=== PATIENT | female | born 1940 | race Caucasian/White ===

== ENCOUNTER 2016-10-27 17:34 | Emergency (ER) | payer OTHER ==
[~2016-10-27] VITALS: Ht 160 cm; Wt 103.0 kg
[~2016-10-27 17:34] MED LIST: ALBU1AER9 INH; ANT25 PO; BUPRTAB51 PO; METO50TA7 PO; MULT-513 PO; PRAV20TA PO; PRLSR20 PO; SYN88 PO
[2016-10-27 17:44] VITALS: TEMP 37.3; Ht 160 cm; Wt 103.0 kg
[2016-10-27] MEDS ORDERED: ASPIRIN 81 MG CHEW PO STA (18:01)
[2016-10-27] MEDS ORDERED: ALUMINUM/MAGNESIUM SUSP 30 ML UDC PO STA (18:01)
--- NOTE | 2016-10-27 18:01 | EMERGENCY ROOM VISIT NOTE ---
History Report prepared by Sandra: Cammy Ng Under the Supervision of: Dr. Kwame Kelsey D.O. First contact with patient: 17:47 Chief Complaint: CHEST PAIN Stated Complaint: CHEST PAIN History of Present Illness The patient is a 76 year old female who presents to the Emergency Room with complaints of intermittent chest pain starting earlier today [employer]. The patient states that some nights she has night sweats which are normal for her but states that today she awoke with diaphoresis, and cramping throughout her chest pain and states the pain has been persistent throughout the day and when the pain begins it lasts for about 15 minutes. The patient states that exertion increases her pain but nothing has made it better. The patient states that she has hypertension and high cholesterol. She states she also has a cardiac ablation in the past for ventricular tachycardia. The patient states that she has no history of NE, stress tests or heart catheterizations. The patient denies any history of diabetes. The patient denies any SOB, or pain or swelling in her legs. Source of History: patient Onset: earlier today [employer] Position: chest Quality: cramping Timing: intermittent Modifying Factors (Worsening): exertion Associated Symptoms: + diaphoresis, No SOB Note: Patient denies any leg pain or swelling. Review of Systems See HPI for pertinent positives & negatives. A total of 10 systems reviewed and were otherwise negative. Past Medical & Surgical Medical Problems: (1) High cholesterol (2) Hypertension Surgical Problems: (1) History of cardiac radiofrequency ablation Family History No family history secondary to age Social History Smoking Status: Never Smoker Marital Status: Housing Status: lives with family Occupation Status: retired Current/Historical Medications Scheduled Aspirin (Aspirin Ec), 81 MG PO DAILY Atorvastatin (Lipitor), 40 MG PO DAILY Bupropion HCl (Bupropion HCl Xl), 300 MG PEG DAILY Clonazepam (Klonopin), 0.5 MG PO HS Fluoxetine (Prozac), 20 MG PO DAILY Fluticasone Prop/Salmeterol (Advair Diskus 250/50 60 Dose), 1 PUFF INH BID Levothyroxine Sodium (Synthroid), 88 MCG PO DAILY Metoprolol Tartrate (Lopressor) (Lopressor), 50 MG PO BID Naproxen (Naproxen), 1 TAB PO BID Omeprazole (Prilosec), 20 MG PO DAILY Scheduled PRN [Proair], 2 PUFFS INH QID PRN for COUGH,WHEEZE,CONGESTION Allergies Coded Allergies: Hydrocodone (Verified Allergy, Intermediate, GI UPSET, 10/27/16) Acetaminophen (Verified Allergy, Unknown, GI SYMPTOMS, 10/27/16) Codeine (Verified Allergy, Unknown, TYLENOL WITH CODEINE, 09/27/09) Morphine and Related (Verified Allergy, Unknown, UNKNOWN, 10/27/16) Propoxyphene (Verified Allergy, Unknown, GI SYMPTOMS, 10/27/16) Tramadol (Verified Allergy, Unknown, 09/27/09) Physical Exam Vital Signs Date Time Temp Pulse Resp B/P Pulse Ox O2 Delivery O2 Flow Rate FiO2 10/27/16 19:59 79 18 169/107 96 Room Air 10/27/16 19:16 74 10/27/16 18:54 79 20 198/99 96 Room Air 10/27/16 17:44 37.3 81 18 178/97 97 Physical Exam GENERAL: Patient is awake, alert, and in no acute distress. Patient is resting comfortably and showing no signs of anxiety EYES: The conjunctivae are clear. The pupils are round and reactive. EARS, NOSE, MOUTH AND THROAT: The nose is without any evidence of any deformity. Mucous membranes are moist tongue is midline NECK: The neck is nontender and supple. RESPIRATORY: Normal respiratory effort is noted there is no evidence of wheezing rhonchi or rales CARDIOVASCULAR: Regular rate and rhythm noted there no murmurs rubs or gallops normal S1 normal S2 GASTROINTESTINAL: The abdomen is soft. Bowel sounds are present in all quadrants. Abdomen is nontender MUSCULOSKELETAL/EXTREMITIES: There is no evidence of gross deformity full range of motion is noted in the hips and shoulders SKIN: There is no obvious evidence of any rash. There are no petechiae, pallor or cyanosis noted. NEUROLOGIC: Patient is awake alert and oriented x3 strength is symmetric patellar reflexes are 2+ bilaterally Medical Decision & Procedures ER Provider Diagnostic Interpretation: X-ray results as stated below per interpretation by me and the radiologist. CHEST ONE VIEW PORTABLE CLINICAL HISTORY: ABDOMINAL PAIN/GI pain COMPARISON STUDY: No previous studies for comparison. FINDINGS: The bones soft tissues and hemidiaphragms are normal. The cardiomediastinal silhouette is normal. The lungs are clear. The pulmonary vasculature is normal. IMPRESSION: Negative chest. Electronically signed by: Juan J Valderrama M.D. 10/27/2016 6:17 PM Laboratory Results 10/27/16 18:30 Red Blood Count 5.26, Mean Corpuscular Volume 88.2, Mean Corpuscular Hemoglobin 30.4, Mean Corpuscular Hemoglobin Concent 34.5, Mean Platelet Volume 10.1, Neutrophils (%) (Auto) 82.8, Lymphocytes (%) (Auto) 8.3, Monocytes (%) (Auto) 8.1, Eosinophils (%) (Auto) 0.2, Basophils (%) (Auto) 0.4, Neutrophils # (Auto) 4.40, Lymphocytes # (Auto) 0.44, Monocytes # (Auto) 0.43, Eosinophils # (Auto) 0.01, Basophils # (Auto) 0.02 10/27/16 18:30 Test 10/27/16 18:30 White Blood Count 5.31 K/uL (4.8-10.8) Red Blood Count 5.26 M/uL (4.2-5.4) Hemoglobin 16.0 g/dL (12.0-16.0) Hematocrit 46.4 % (37-47) Mean Corpuscular Volume 88.2 fL (80-100) Mean Corpuscular Hemoglobin 30.4 pg (25-34) Mean Corpuscular Hemoglobin Concent 34.5 g/dl (32-36) Platelet Count 197 K/uL (130-400) Mean Platelet Volume 10.1 fL (7.4-10.4) Neutrophils (%) (Auto) 82.8 % Lymphocytes (%) (Auto) 8.3 % Monocytes (%) (Auto) 8.1 % Eosinophils (%) (Auto) 0.2 % Basophils (%) (Auto) 0.4 % Neutrophils # (Auto) 4.40 K/uL (1.4-6.5) Lymphocytes # (Auto) 0.44 K/uL (1.2-3.4) Monocytes # (Auto) 0.43 K/uL (0.11-0.59) Eosinophils # (Auto) 0.01 K/uL (0-0.5) Basophils # (Auto) 0.02 K/uL (0-0.2) RDW Standard Deviation 43.3 fL (36.4-46.3) RDW Coefficient of Variation 13.4 % (11.5-14.5) Immature Granulocyte % (Auto) 0.2 % Immature Granulocyte # (Auto) 0.01 K/uL (0.00-0.02) Prothrombin Time 11.5 SECONDS (9.0-12.0) Prothromb Time International Ratio 1.1 (0.9-1.1) Activated Partial Thromboplast Time 27.3 SECONDS (21.0-31.0) Partial Thromboplastin Ratio 1.1 Anion Gap 14.0 mmol/L (3-11) Est Creatinine Clear Calc Drug Dose 64.3 ml/min Estimated GFR () 75.0 Estimated GFR (Non- 64.7 BUN/Creatinine Ratio 14.4 (10-20) Calcium Level 9.6 mg/dl (8.5-10.1) Total Bilirubin 0.5 mg/dl (0.2-1) Direct Bilirubin < 0.1 mg/dl (0-0.2) Aspartate Amino Transf (AST/SGOT) 23 U/L (15-37) Alanine Aminotransferase (ALT/SGPT) 28 U/L (12-78) Alkaline Phosphatase 120 U/L (45-117) Total Creatine Kinase 32 U/L (26-192) Creatine Kinase MB < 0.5 ng/ml (0.5-3.6) Creatine Kinase MB Ratio (0-3.0) Troponin I < 0.015 ng/ml (0-0.045) Total Protein 7.2 gm/dl (6.4-8.2) Albumin 3.6 gm/dl (3.4-5.0) Lipase 86 U/L (73-393) Laboratory results per my review. Medications Administered Medications (Trade) Dose Ordered Sig/Balaji Route Start Time Stop Time Status Last Admin Dose Admin Aspirin (Aspirin Chew) 324 mg NOW STAT PO 10/27/16 18:01 10/27/16 18:03 DC 10/27/16 18:53 324 MG Al Hydroxide/Mg Hydroxide (Maalox Susp) 30 ml NOW STAT PO 10/27/16 18:01 10/27/16 18:03 DC 10/27/16 18:53 30 ML ECG Indication: chest pain Rate (beats per minute): 79 Rhythm: normal sinus Findings: RBBB, other (No PVCs) Change: no significant change (05/25/2013) ED Course 1752: The patient was evaluated in room C3. A complete history and physical examination were performed. 1800: Ordered Maalox Susp 30 ml PO, Aspirin 324 mg PO. 1999: Upon reevaluation, the patient is C3. I discussed the results and treatment plan with her. She verbalized agreement of the treatment plan. The patient was discharged home. Medical Decision Prior records/ancillary studies reviewed. Triage Nursing notes reviewed. The patient's history was concerning for chest pain. Differential diagnosis: Etiologies such as cardiac ischemia, aortic dissection, pulmonary embolism, pneumonia, pneumothorax, musculoskeletal, infections, pericarditis, myocarditis , esophageal rupture, gastrointestinal, as well as others were entertained. The patient is a 76-year-old female who presented to the emergency department for an evaluation of chest pain. The patient developed chest pain earlier in the day. She states it was not worsened with exertion but she does state that she was helping move some objects around her house recently. The patient had no chest pain upon arrival to the emergency department. Her EKG did not show any acute change from previous and her cardiac biomarkers were negative. I discussed the patient's laboratory and radiographic studies with her. I also discussed the limitations of the emergency department workup for chest pain with her. The patient did not wish to stay in the hospital. I offered to have her evaluated by the hospitalist for possible inpatient management and further testing such as a stress test but the patient wished to be discharged home. She was encouraged to rest and avoid any strenuous activity. She was also encouraged to continue all medications as prescribed. She was also encouraged to follow-up with her primary care physician as soon as possible for further evaluation and possible stress testing to further evaluate the cause of her symptoms. Impression Primary Impression: Substernal chest pain Scribe Attestation The scribe's documentation has been prepared under my direction and personally reviewed by me in its entirety. I confirm that the note above accurately reflects all work, treatment, procedures, and medical decision making performed by me. Departure Information Dispostion Home / Self-Care Referrals No Doctor, Assigned (PCP) Forms HOME CARE DOCUMENTATION FORM, IMPORTANT VISIT INFORMATION Patient Instructions My [facility] Additional Instructions Call your family in the morning to schedule a follow-up appointment. Rest and avoid any strenuous activity. Continue all medications as prescribed. Discuss the possibility with your family doctor that you may require further studies such as a stress test to be evaluate the cause of her pain. Return to the emergency Department immediately if symptoms change worsen or the need arises.
[2016-10-27] MEDS ORDERED: CLON0.5T3 PO (18:18)
[2016-10-27] MEDS ORDERED: FLUO20CA35 PO (18:18)
[2016-10-27] MEDS ORDERED: LEVO88TA PO (18:18)
[2016-10-27] MEDS ORDERED: NAPR375T3 PO (18:18)
[2016-10-27] MEDS ORDERED: PROAIR INH (18:18)
[2016-10-27] MEDS ORDERED: TRMCR130WC TOP (18:18)
[2016-10-27] MEDS ORDERED: WLLXL300 PEG (18:18)
[2016-10-27] MEDS ORDERED: ADVIN25/60 INH (18:18)
[2016-10-27] MEDS ORDERED: ATOR-24 PO (18:18)
[2016-10-27] MEDS ORDERED: METO50TA16 PO (18:18)
--- NOTE | 2016-10-27 18:18 | DIAGNOSTIC IMAGING REPORT ---
CHEST ONE VIEW PORTABLE CLINICAL HISTORY: ABDOMINAL PAIN/GI pain COMPARISON STUDY: No previous studies for comparison. FINDINGS: The bones soft tissues and hemidiaphragms are normal. The cardiomediastinal silhouette is normal. The lungs are clear. The pulmonary vasculature is normal. IMPRESSION: Negative chest. Electronically signed by: Juan J Valderrama M.D. 10/27/2016 6:17 PM Dictated Date/Time: 10/27/2016 6:17 PM
[2016-10-27 18:40] LABS: BASO % 0.4 %; BASO ABS # 0.02 K/uL (0-0.2); COMPLETE YES; EOS % 0.2 %; HEMATOCRIT 46.4 % (37-47); IG% 0.2 %; LYMPH % 8.3 %; LYMPH ABS # 0.44 K/uL (1.2-3.4); MEAN CELL VOLUME 88.2 fL (80-100); MEAN CORPUSCULAR HEMOGLOBIN 30.4 pg (25-34); MEAN CORPUSCULAR HGB CONC 34.5 g/dl (32-36); MEAN PLATELET VOLUME 10.1 fL (7.4-10.4); MONO % 8.1 %; NEUT % 82.8 %; PLATELET COUNT 197 K/uL (130-400); RED BLOOD COUNT 5.26 M/uL (4.2-5.4); WHITE BLOOD COUNT 5.31 K/uL (4.8-10.8)
[2016-10-27] MEDS ORDERED: ASPI81TA28 PO (18:42)
[2016-10-27 18:49] LABS: INR 1.1 (0.9-1.1); PARTIAL THROMBOPLASTIN RATIO 1.1; PROTHROMBIN TIME (PATIENT) 11.5 SECONDS (9.0-12.0)
[2016-10-27 18:56] LABS: ALT/SGPT 28 U/L (12-78); BLOOD UREA NITROGEN 13 mg/dl (7-18); BUN/CREATININE RATIO 14.4 (10-20); CALCIUM 9.6 mg/dl (8.5-10.1); CARBON DIOXIDE 24 mmol/L (21-32); CHLORIDE 104 mmol/L (98-107); CREATININE 0.88 mg/dl (0.60-1.20); GLUCOSE 104 mg/dl (70-99); POTASSIUM 3.7 mmol/L (3.5-5.1); SODIUM 142 mmol/L (136-145)
[2016-10-27 19:01] LABS: ALKALINE PHOSPHATASE 120 U/L (45-117); AST/SGOT 23 U/L (15-37)
[2016-10-27 19:59] VITALS: BP 169/107; PULSE 79; O2SAT 96
== END 2016-10-27 20:30 | disposition home or self-care (01) ==
LOC: C.EDB 17:36 → C.EDC 20:30
DX: R07.2 Precordial pain (principal); I10 Essential (primary) hypertension; E78.00 Pure hypercholesterolemia, unspecified; Z79.82 Long term (current) use of aspirin; Z79.899 Other long term (current) drug therapy

== ENCOUNTER 2023-02-17 14:37 | Observation (INO) ==
--- NOTE | 2023-02-17 15:40 | XRay Report ---
XR chest 1V not portable CLINICAL HISTORY: Chest pain, nonspecific TECHNIQUE: Single frontal radiograph of the chest was obtained. Comparison: Comparison is made to chest radiograph 01/15/2018 FINDINGS: No lines and tubes are seen. Calcified aortic knob is seen. The lungs are clear. No evidence of pleur al effusion or pneumothorax. IMPRESSION: No acute chest disease. ACT 112: Negative or not required by law. Electronically signed by: Mikie Urbina M.D. 02/17/2023 3:39 PM
[2023-02-17 15:46] LABS: Basophils # (auto) 0.06 K/uL (0-0.2); Basophils % (auto) 0.8 %; Eosinophils # (auto) 0.18 K/uL (0-0.50); Eosinophils % (auto) 2.5 %; Hematocrit (blood only) 39.2 % (37.0-47.0); Hemoglobin 13.1 g/dl (12.0-16.0); Immature Granulocytes # (auto) 0.02 K/uL (0.01-0.20); Immature Granulocytes % (auto) 0.3 %; Lymphocytes # (auto) 1.44 K/uL (1.2-3.4); Lymphocytes % (auto) 19.6 %; Mean Corpuscular Hemoglobin 28.2 pg (25.0-34.0); Mean Corpuscular Hgb Conc 33.4 g/dL (32.0-36.0); Mean Corpuscular Volume 84.3 fL (80.0-100.0); Monocytes # (auto) 0.37 K/uL (0.11-0.59); Neutrophils # (auto) 5.26 K/uL (1.40-6.50); Neutrophils % (auto) 71.8 %; Platelet Count 275 K/uL (130-400); RDW Coefficient of Variation 14.5 % (11.5-14.5); RDW Standard Deviation 44.5 fL (36.4-46.3); Red Blood Count 4.65 M/uL (4.20-5.40); White Blood Count 7.33 K/ul (4.8-10.8)
[2023-02-17 16:00] LABS: Albumin Globulin Ratio 1.2 (0.9-2); Albumin Level 3.7 gm/dl (3.4-5.0); Bilirubin,Total 0.4 mg/dl (0.2-1.0); Calcium 9.3 mg/dl (8.6-10.3); Creatinine Clr Calc Pharmacy 57.9 ml/min; Est GFR (African American) 72.9 ml/min; Est GFR (Non-African American) 62.9 ml/min; Globulin 3.1 gm/dl (2.5-4.0); Potassium 3.5 mmol/L (3.5-5.1); Total Protein 6.8 gm/dl (6.0-8.3)
[2023-02-17] MEDS ORDERED: ASPIRIN CHEW 324 MG PO STA (16:03)
[2023-02-17 16:06] LABS: Troponin I High Sensitivity 5.4 pg/ml (0-14)
--- NOTE | 2023-02-17 16:07 | Emergency Department Note ---
Impression & Plan Palpitations, Hypertension ED Provider Note NAME: CHINYERE JENSEN AGE: 82 SEX: F : 1940 ARRIVES VIA: Walk-In INFORMANT: Patient ED PROVIDER(S): Henrry Ng DO CHIEF COMPLAINT: Palpitations HPI: Patient is an 82-year-old female who presents to the ER with a past medical history of SVT with 2 previous ablations. She notes last ablation was about 25 years ago. She has been doing great until over this past year. She notes her palpitations have been worsening. She had about 5 times today. Patient notes that these episodes last for about 10 to 15 minutes. They generally always break when she holds her breath. She did have follow-up with a PCP. She is on the Toprol tartrate 50 mg twice daily. She has not missed any doses. No belly pain nausea vomiting or diarrhea. No dysuria, urgency, or frequency. No other exacerbating or remitting factors. PAST MEDICAL HISTORY:See Below PAST SURGICAL HISTORY:See Below FAMILY HISTORY:See Below SOCIAL HISTORY:See Below HOME MEDICATIONS:See Below ALLERGIES:See Below VITALS:See Below PHYSICAL EXAMINATION: GENERAL: Sitting up in bed, alert, well appearing, well nourished, no distress, non-toxic EYE EXAM: normal conjunctiva. OROPHARYNX: no exudate, no erythema, lips, buccal mucosa, and tongue normal and mucous membranes are moist NECK: supple, no nuchal rigidity, no adenopathy, non-tender LUNGS: Clear to auscultation. Normal chest wall mechanics HEART: no murmurs, S1 normal and S2 normal ABDOMEN: abdomen soft, non-tender, normo-active bowel sounds, no masses, no rebound or guarding. BACK: Back is symmetrical on inspection and there is no deformity, no midline tenderness, no CVA tenderness. SKIN: no rashes and no bruising UPPER EXTREMITIES: upper extremities are grossly normal. LOWER EXTREMITIES: No pitting edema. Calf cervical bilateral NEURO EXAM: Normal sensorium, cranial nerves II-XII grossly intact, normal speech, no gross weakness of arms, no gross weakness of legs. MEDICAL DECISION MAKING: Patient is an 82-year-old female who presents ER for above-stated complaint. IV was established blood work was obtained. External records were reviewed. Labs show no significant leukocytosis or anemia. INR unremarkable. BMP along LFTs bilirubin was unremarkable. Troponin was negative. COVID was negative. Chest x-ray was clean. Patient was given IV fluids and monitor closely in the ER. She was updated bedside. Discussed the case with the hospitalist for further evaluation management and treatment is concerned that this could be A-fib versus SVT. As its happened about 5 times today and favor it is reasonable to monitor her to catch this. Triage Nursing notes reviewed. Limited review of prior medical records performed Vital Signs: reviewed and remarkable for HTN Differential diagnosis: Cardiac ischemia, aortic dissection, pulmonary embolism, pneumothorax, pneumonia, pericarditis, myocarditis, esophageal rupture, GERD, cholecystitis, pancreatitis, musculoskeletal, as well as other pathologies. ER treatment provided: See below Diagnostics interpreted by me include EKG and cardiac monitoring as listed below: -Cardiac Monitoring: An order was placed for continuous cardiac monitoring. The monitor shows a rate of 60 with sinus rhythm. -ECG: Sinus rhythm rate of 62 Normal axis No PVCs Right bundle branch block QTc 442 EKG is not significantly changed from previous with the exception of T wave versions in V1 through V3 -Laboratory studies:Interpreted by me as stated above in MDM and shown below. Imaging studies: Xrays: As interpreted by me: Portable AP upright 1 view of the chest shows no infiltrate CTs show: none Consultation(s): As described in MDM Procedures:none Critical Care: None Past Med/Surg History Medical History (Updated 02/17/23 @ 20:56 by Henrry Ng DO) Depression GERD (gastroesophageal reflux disease) History of supraventricular tachycardia HLD (hyperlipidemia) Hypertension Surgical History (Updated 02/17/23 @ 20:02 by July Neumann PA-C) History of arthroplasty of knee History of cardiac radiofrequency ablation History of cholecystectomy Hx of tonsillectomy Family History (Updated 02/17/23 @ 20:02 by July Neumann PA-C) Other Breast cancer Heart disease Social History (Updated 02/17/23 @ 20:02 by July Neumann PA-C) Smoking Status: Never smoker Second Hand Exposure: No; Do You Dip or Chew Tobacco: No; Tobacco Cessation Education Requested by Patient: No Hx Alcohol Use: No Hx Substance Use: No Preferred Language: Japanese Communication Ability: Effective Wood Type Finisher Required: No Beliefs That Will Affect Care: None Current Living Situation: Alone Other Information That Helps Us Care for You: No Feels Safe at Home: Yes Safety Concerns: Feels Safe At This Time Assistive Devices: Walker Allergies Allergies Allergy/AdvReac Type Severity Reaction Status Date / Time hydrocodone Allergy Intermediate GI UPSET Verified 02/17/23 17:13 acetaminophen Allergy Unknown GI SYMPTOMS Verified 02/17/23 17:13 codeine Allergy Unknown TYLENOL Verified 02/17/23 17:13 WITH CODEINE morphine Allergy Unknown UNKNOWN Verified 02/17/23 17:13 propoxyphene Allergy Unknown GI SYMPTOMS Verified 02/17/23 17:13 tramadol Allergy Unknown Unknown Verified 02/17/23 17:13 Home Meds Home Medications Medication Instructions Recorded Confirmed bupropion HCl 150 mg 24 hr tablet, 150 mg PO QAM 02/17/23 02/17/23 extended release escitalopram oxalate 10 mg tablet 10 mg PO QAM 02/17/23 02/17/23 hydrochlorothiazide 12.5 mg capsule 12.5 mg PO QAM 02/17/23 02/17/23 levothyroxine 88 mcg tablet 88 mcg PO DAILYBB 02/17/23 02/17/23 metoprolol tartrate 50 mg tablet 50 mg PO BID 02/17/23 02/17/23 nystatin 100,000 unit/gram topical 1 applic topical TID 02/17/23 02/17/23 powder omeprazole 20 mg tablet,delayed 20 mg PO DAILY 02/17/23 02/17/23 release rosuvastatin 10 mg tablet 10 mg PO DAILY 02/17/23 02/17/23 Results & Data (ED) Vital Signs Vital Signs - 24 hr 02/17/23 14:41 02/17/23 15:50 02/17/23 15:50 Temperature 36.3 C L Temperature Source Temporal Artery Scan Pulse Rate 72 Pulse Rate [Apical] 65 Pulse Rate from SpO2 Sensor Pulse Rhythm [Apical] Regular Respiratory Rate 18 18 Respiratory Effort / Characteristics Non-Labored Non-Labored Spontaneous Respiratory Depth Normal Normal Respiratory Pattern Regular Regular Blood Pressure 188/84 H Blood Pressure [Right Arm] 165/100 H Blood Pressure Mean 118 Blood Pressure Mean [Right Arm] 121 Blood Pressure Position [Right Arm] Lying Pulse Oximetry 96 96 96 Oxygen Delivery Method Room Air Room Air Room Air Sepsis Recent Fever Within 48 Hours No Sepsis New/Unexplained Change in Mental Status N/A Sepsis Action Taken by Nursing No Action Required 02/17/23 15:55 02/17/23 17:00 02/17/23 15:55 Temperature Temperature Source Pulse Rate 59 L 60 Pulse Rate [Apical] 55 L Pulse Rate from SpO2 Sensor 59 L Pulse Rhythm [Apical] Respiratory Rate 18 13 Respiratory Effort / Characteristics Non-Labored Respiratory Depth Normal Respiratory Pattern Blood Pressure Blood Pressure [Right Arm] 157/79 H Blood Pressure Mean Blood Pressure Mean [Right Arm] 105 Blood Pressure Position [Right Arm] Pulse Oximetry 96 96 Oxygen Delivery Method Room Air Sepsis Recent Fever Within 48 Hours Sepsis New/Unexplained Change in Mental Status Sepsis Action Taken by Nursing 02/17/23 16:00 02/17/23 16:30 02/17/23 17:00 Temperature Temperature Source Pulse Rate 67 57 L 56 L Pulse Rate [Apical] Pulse Rate from SpO2 Sensor 68 58 L 55 L Pulse Rhythm [Apical] Respiratory Rate 18 12 13 Respiratory Effort / Characteristics Respiratory Depth Respiratory Pattern Blood Pressure Blood Pressure [Right Arm] Blood Pressure Mean Blood Pressure Mean [Right Arm] Blood Pressure Position [Right Arm] Pulse Oximetry 97 95 96 Oxygen Delivery Method Sepsis Recent Fever Within 48 Hours Sepsis New/Unexplained Change in Mental Status Sepsis Action Taken by Nursing 02/17/23 17:19 02/17/23 17:19 02/17/23 17:30 Temperature Temperature Source Pulse Rate 54 L Pulse Rate [Apical] Pulse Rate from SpO2 Sensor 53 L Pulse Rhythm [Apical] Respiratory Rate 14 Respiratory Effort / Characteristics Respiratory Depth Respiratory Pattern Blood Pressure 157/79 H 161/73 H Blood Pressure [Right Arm] Blood Pressure Mean 105 102 Blood Pressure Mean [Right Arm] Blood Pressure Position [Right Arm] Pulse Oximetry 96 Oxygen Delivery Method Sepsis Recent Fever Within 48 Hours Sepsis New/Unexplained Change in Mental Status Sepsis Action Taken by Nursing 02/17/23 17:30 02/17/23 18:00 02/17/23 18:00 Temperature Temperature Source Pulse Rate 54 L 55 L Pulse Rate [Apical] Pulse Rate from SpO2 Sensor Pulse Rhythm [Apical] Respiratory Rate 14 16 Respiratory Effort / Characteristics Respiratory Depth Respiratory Pattern Blood Pressure 146/79 H Blood Pressure [Right Arm] Blood Pressure Mean 101 Blood Pressure Mean [Right Arm] Blood Pressure Position [Right Arm] Pulse Oximetry Oxygen Delivery Method Sepsis Recent Fever Within 48 Hours Sepsis New/Unexplained Change in Mental Status Sepsis Action Taken by Nursing 02/17/23 18:30 02/17/23 18:31 02/17/23 18:31 Temperature Temperature Source Pulse Rate 55 L 56 L Pulse Rate [Apical] Pulse Rate from SpO2 Sensor 55 L 55 L Pulse Rhythm [Apical] Respiratory Rate 18 17 Respiratory Effort / Characteristics Respiratory Depth Respiratory Pattern Blood Pressure 178/80 H Blood Pressure [Right Arm] Blood Pressure Mean 112 Blood Pressure Mean [Right Arm] Blood Pressure Position [Right Arm] Pulse Oximetry 97 97 Oxygen Delivery Method Sepsis Recent Fever Within 48 Hours Sepsis New/Unexplained Change in Mental Status Sepsis Action Taken by Nursing Laboratory Data 02/17/23 15:22 02/17/23 15:22 Lab Results 02/17/23 02/17/23 02/17/23 Range/Units 15:22 15:22 15:22 WBC 7.33 (4.8-10.8) K/ul RBC 4.65 (4.20-5.40) M/uL Hgb 13.1 (12.0-16.0) g/dl Hct 39.2 (37.0-47.0) % MCV 84.3 (80.0-100.0) fL MCH 28.2 (25.0-34.0) pg MCHC 33.4 (32.0-36.0) g/dL RDW Std Deviation 44.5 (36.4-46.3) fL RDW Coeff of Blanca 14.5 (11.5-14.5) % Plt Count 275 (130-400) K/uL MPV 11.0 (9.4-12.4) fL Immature Gran % (Auto) 0.3 % Neut % (Auto) 71.8 % Lymph % (Auto) 19.6 % [place] % (Auto) 5.0 % Eos % (Auto) 2.5 % Baso % (Auto) 0.8 % Neut # (Auto) 5.26 (1.40-6.50) K/uL Lymph # (Auto) 1.44 (1.2-3.4) K/uL [place] # (Auto) 0.37 (0.11-0.59) K/uL Eos # (Auto) 0.18 (0-0.50) K/uL Baso # (Auto) 0.06 (0-0.2) K/uL Immature Gran # (Auto) 0.02 (0.01-0.20) K/uL PT 11.3 (9.0-12.0) Seconds INR 1.0 (0.9-1.1) APTT 26.1 (21.0-31.0) Seconds PTT Ratio 0.9 Sodium 141 (136-145) mmol/L Potassium 3.5 (3.5-5.1) mmol/L Chloride 107 (98-107) mmol/L Carbon Dioxide 27 (21-32) mmol/L Anion Gap 7 (3-11) BUN 20 (6-23) mg/dl Creatinine 0.87 (0.6-1.2) mg/dl Est Cr Clr Drug Dosing 57.9 ml/min Est GFR ( Amer) 72.9 ml/min Est GFR (Non-Af Amer) 62.9 ml/min BUN/Creatinine Ratio 23.0 H (10-20) Glucose 102 H (70-99(Fasting)) mg/dl Calcium 9.3 (8.6-10.3) mg/dl Total Bilirubin 0.4 (0.2-1.0) mg/dl AST 14 (13-39) U/L ALT 10 (7-52) U/L Alkaline Phosphatase 75 (34-104) U/L Troponin I High Sens 5.4 (0-14) pg/ml Total Protein 6.8 (6.0-8.3) gm/dl Albumin 3.7 (3.4-5.0) gm/dl Globulin 3.1 (2.5-4.0) gm/dl Albumin/Globulin Ratio 1.2 (0.9-2) SARS-CoV-2, RNA, NAAT (NEGATIVE) 02/17/23 Range/Units 18:12 WBC (4.8-10.8) K/ul RBC (4.20-5.40) M/uL Hgb (12.0-16.0) g/dl Hct (37.0-47.0) % MCV (80.0-100.0) fL MCH (25.0-34.0) pg MCHC (32.0-36.0) g/dL RDW Std Deviation (36.4-46.3) fL RDW Coeff of Blanca (11.5-14.5) % Plt Count (130-400) K/uL MPV (9.4-12.4) fL Immature Gran % (Auto) % Neut % (Auto) % Lymph % (Auto) % [place] % (Auto) % Eos % (Auto) % Baso % (Auto) % Neut # (Auto) (1.40-6.50) K/uL Lymph # (Auto) (1.2-3.4) K/uL [place] # (Auto) (0.11-0.59) K/uL Eos # (Auto) (0-0.50) K/uL Baso # (Auto) (0-0.2) K/uL Immature Gran # (Auto) (0.01-0.20) K/uL PT (9.0-12.0) Seconds INR (0.9-1.1) APTT (21.0-31.0) Seconds PTT Ratio Sodium (136-145) mmol/L Potassium (3.5-5.1) mmol/L Chloride (98-107) mmol/L Carbon Dioxide (21-32) mmol/L Anion Gap (3-11) BUN (6-23) mg/dl Creatinine (0.6-1.2) mg/dl Est Cr Clr Drug Dosing ml/min Est GFR ( Amer) ml/min Est GFR (Non-Af Amer) ml/min BUN/Creatinine Ratio (10-20) Glucose (70-99(Fasting)) mg/dl Calcium (8.6-10.3) mg/dl Total Bilirubin (0.2-1.0) mg/dl AST (13-39) U/L ALT (7-52) U/L Alkaline Phosphatase (34-104) U/L Troponin I High Sens (0-14) pg/ml Total Protein (6.0-8.3) gm/dl Albumin (3.4-5.0) gm/dl Globulin (2.5-4.0) gm/dl Albumin/Globulin Ratio (0.9-2) SARS-CoV-2, RNA, NAAT NEGATIVE (NEGATIVE) Administered Medications Discontinued Medications Aspirin (Aspirin Chew 324 Mg) 324 mg PO NOW STA Stop: 02/17/23 16:04 Last Admin: 02/17/23 16:06 Dose: 324 mg Documented By: JONAH Sodium Chloride (Nss 1000ml) 500 mls @ 999 mls/hr IV .Q31M ONE Stop: 02/17/23 18:39 Last Infusion: 02/17/23 19:06 Dose: 0 mls/hr Documented By: Admin: 02/17/23 18:14 Dose: 999 mls/hr Documented By: JONAH Imaging Data Radiologist's Impression: Chest X-Ray 02/17/23 14:48 XR chest 1V not portable CLINICAL HISTORY: Chest pain, nonspecific TECHNIQUE: Single frontal radiograph of the chest was obtained. Comparison: Comparison is made to chest radiograph 01/15/2018 FINDINGS: No lines and tubes are seen. Calcified aortic knob is seen. The lungs are clear. No evidence of pleural effusion or pneumothorax. IMPRESSION: No acute chest disease. ACT 112: Negative or not required by law. Electronically signed by: Mikie Urbina M.D. 02/17/2023 3:39 PM Discharge Plan Visit Data Chief Complaint: Cardiac Assessment Stated Complaint: PALPITATIONS,SOB,TINGLING IN FINGERS,ARMS,LEGS ED Provider: Henrry Ng Discharge Problem: Palpitations, Hypertension Patient Disposition: Admitted As Inpatient Discharge Instructions Interventions: ED Discharge Assessment Last Done: 02/17/23 20:34
[2023-02-17 16:23] LABS: Partial Thromboplastin Ratio 0.9; Partial Thromboplastin Time 26.1 Seconds (21.0-31.0); Prothrombin Time 11.3 Seconds (9.0-12.0)
--- NOTE | 2023-02-17 16:32 | Electrocardiogram Report ---
Test Reason : Blood Pressure : / mmHG Vent. Rate : 062 BPM Atrial Rate : 062 BPM P-R Int : 190 ms QRS Dur : 130 ms QT Int : 436 ms P-R-T Axes : 021 014 010 degrees QTc Int : 442 ms Normal sinus rhythm Right bundle branch block Abnormal ECG When compared with ECG of 16-JAN-2018 08:58, T wave inversion now evident in Anterior leads Confirmed by Warren Perez ([id number]) on 02/17/2023 4:32:03 PM Referred By: REFERRED SELF Confirmed By:Warren Perez
[2023-02-17] MEDS ORDERED: SODIUM CHLORIDE 0.9% 1000ML 500 ML IV ONE (18:09)
--- NOTE | 2023-02-17 18:52 | History & Physical Report ---
Date of Service February 17, 2023 Assessment & Plan (1) Palpitations: Plan: Patient is 82-year-old female with PMH of SVT s/p ablation, HTN, HLD, depression, GERD, hypothyroidism presented to ER with complaint of palpitations x several weeks In ER in sinus rhythm, initially bradycardic in the 50s which improved to the 60s. EKG sinus rhythm, T wave inversion anterior leads, RBBB CXR: No acute disease Monitor on telemetry to rule out arrhythmia Obtain TSH and magnesium levels Initial troponin negative. Repeat troponin EKG in a.m. Echo Continue metoprolol tartrate CBC, BMP in a.m. Cardiology consult (2) Hypertension: Plan: BP elevated in ER. Patient very anxious currently We will monitor BP on floor. May need to further adjust medication Continue HCTZ, metoprolol tartrate (3) HLD (hyperlipidemia): Plan: Continue rosuvastatin (4) Depression: Plan: Following with PCP for increased depression and anxiety recently Continue escitalopram, bupropion (5) GERD (gastroesophageal reflux disease): Plan: Continue PPI (6) Hypothyroidism: Plan: TSH pending Continue levothyroxine DVT Prophylaxis Heparin subcu DNR/DNI as per discussion with pt Follows with Dr Munguia for routine care Pt was seen and care coordinated with Dr Hill. See addendum I spent a total of 75 minutes reviewing notes, outpatient records, labs, medication, coordinating, documenting and providing care for this patient excluding time spent in the performance of separately billed services. History of Present Illness Chief Complaint: palpitations Primary Care Provider: Kurtis Munguia DO Patient is 82-year-old female with PMH of SVT s/p ablation, HTN, HLD, depression, GERD, hypothyroidism presented to ER with complaint of palpitations. Patient reports past several weeks has been having intermittent palpitations. She feels that palpitations have become more frequent and are now occurring on a daily basis. Palpitations will sometimes last 20 minutes or longer. Sometimes she can get palpitations to resolve with Valsalva maneuver. Denies any associated chest pain, shortness of breath, diaphoresis, dizziness, syncope. Patient states today palpitations seem to be ongoing so she took an additional 25 mg metoprolol tartrate this afternoon. Reports followed up with PCP and had outpatient windows phone developer however reports she just turned in and no results yet. Patient reports is under a great deal of stress. A good friend that she was taking care of almost 6 months ago. Patient states she has been having a hard time dealing with this. She is planning to move to [place] to live with her daughter. Patient reports feels ashamed that she has to live with her daughter and is feeling quite anxious about this. Denies fever/chills, diaphoresis, N/V/D/C, VANEGAS, vision changes, neck pain, cough, sore throat, rhinorrhea, abdominal pain, paresthesias, extremity weakness, extremity edema, rashes, urinary symptoms. Allergies Allergy/AdvReac Type Severity Reaction Status Date / Time hydrocodone Allergy Intermediate GI UPSET Verified 02/17/23 17:13 acetaminophen Allergy Unknown GI SYMPTOMS Verified 02/17/23 17:13 codeine Allergy Unknown TYLENOL Verified 02/17/23 17:13 WITH CODEINE morphine Allergy Unknown UNKNOWN Verified 02/17/23 17:13 propoxyphene Allergy Unknown GI SYMPTOMS Verified 02/17/23 17:13 tramadol Allergy Unknown Unknown Verified 02/17/23 17:13 Home Medications Medication Instructions Recorded Confirmed Type bupropion HCl 150 mg 24 hr tablet, 150 mg PO QAM 02/17/23 02/17/23 History extended release escitalopram oxalate 10 mg tablet 10 mg PO QAM 02/17/23 02/17/23 History hydrochlorothiazide 12.5 mg capsule 12.5 mg PO QAM 02/17/23 02/17/23 History metoprolol tartrate 50 mg tablet 50 mg PO BID 02/17/23 02/17/23 History nystatin 100,000 unit/gram topical 1 applic topical TID 02/17/23 02/17/23 History powder omeprazole 20 mg tablet,delayed 20 mg PO DAILY 02/17/23 02/17/23 History release rosuvastatin 10 mg tablet 10 mg PO DAILY 02/17/23 02/17/23 History hydroxyzine HCl 10 mg tablet 10 mg PO TID PRN anxiety #60 tabs 02/18/23 Rx levothyroxine 75 mcg tablet 75 mcg PO DAILYBB #30 tabs 02/18/23 Rx (Synthroid) potassium chloride 10 mEq 10 meq PO DAILY #30 tabs 02/18/23 Rx tablet,extended release(part/cryst) Past Med/Surg History Medical History Depression GERD (gastroesophageal reflux disease) History of supraventricular tachycardia HLD (hyperlipidemia) Hypertension Surgical History History of arthroplasty of knee History of cardiac radiofrequency ablation History of cholecystectomy Hx of tonsillectomy Family History Other Breast cancer Heart disease Social History Smoking Status: Never smoker Second Hand Exposure: No; Do You Dip or Chew Tobacco: No; Hx Alcohol Use: No Hx Substance Use: No Preferred Language: Slovak Communication Ability: Effective Social Organization Professor Required: No Beliefs That Will Affect Care: None Current Living Situation: Alone Feels Safe at Home: Yes Assistive Devices: Walker Review of Systems Review of Systems: All systems reviewed & are unremarkable except as noted in HPI & below Physical Exam Physical Exam: General: +anxious, otherwise no acute distress, obese elderly female Head: normocephalic, atraumatic Eyes: conjunctiva non-injected, anicteric ENT: normal inspection external ears, nose, mucous membranes moist Neck: supple, trachea midline Lungs: clear, no respiratory distress, no wheezing/rhonchi/rales CV: RRR, no murmur, no pretibial edema Abd: protuberant, normal BS, soft, non-tender Ext: no cyanosis, no calf tenderness Neuro: A&O x 3, no focal deficits noted, +tearful, anxious Skin: warm, dry Results & Data Results & Data Vital Signs (Past 12 Hours) Vital Signs Temp Pulse Pulse Resp BP BP Pulse Ox 02/17/23 17:00 55 L 18 157/79 H 96 02/17/23 15:55 59 L 02/17/23 15:50 96 02/17/23 15:50 65 18 165/100 H 96 02/17/23 14:41 36.3 C L 72 18 188/84 H 96 O2 Del Method 02/17/23 17:00 Room Air 02/17/23 15:55 02/17/23 15:50 Room Air 02/17/23 15:50 Room Air 02/17/23 14:41 Room Air Laboratory Results Short CBC 02/17/23 Range/Units 15:22 WBC 7.33 (4.8-10.8) K/ul Hgb 13.1 (12.0-16.0) g/dl Hct 39.2 (37.0-47.0) % Plt Count 275 (130-400) K/uL BMP 02/17/23 15:22 Sodium 141 Potassium 3.5 Chloride 107 Carbon Dioxide 27 BUN 20 Creatinine 0.87 Glucose 102 H Calcium 9.3 Liver Function 02/17/23 Range/Units 15:22 Total Bilirubin 0.4 (0.2-1.0) mg/dl AST 14 (13-39) U/L ALT 10 (7-52) U/L Alkaline Phosphatase 75 (34-104) U/L Albumin 3.7 (3.4-5.0) gm/dl Diagnostic Findings Chest X-Ray 02/17/23 14:48 XR chest 1V not portable CLINICAL HISTORY: Chest pain, nonspecific TECHNIQUE: Single frontal radiograph of the chest was obtained. Comparison: Comparison is made to chest radiograph 01/15/2018 FINDINGS: No lines and tubes are seen. Calcified aortic knob is seen. The lungs are clear. No evidence of pleural effusion or pneumothorax. IMPRESSION: No acute chest disease. ACT 112: Negative or not required by law. Electronically signed by: Mikie Urbina M.D. 02/17/2023 3:39 PM ECG Rate (beats per minute): 62 Rhythm: sinus rhythm Findings: + RBBB and + T-wave inversion (Anterior) Supervising Physician Co-Signing Physician Notes Pt was seen and examined. Agreed with July FLORIAN exam, assessmet and plan. 82-year-old female with PMH of SVT s/p ablation, HTN, HLD, depression, GERD, hypothyroidism presented to ER with complaint of intermittent palpitations. she said that her palpitation is getting more frequent. She said that in the past, she performed the Valsalva maneuver that usually resolved it. Denies any associated chest pain, shortness of breath, diaphoresis, dizziness, syncope. Will get an echo. Continue metoprolol tartrate. Cardiology consult. Continue monitor closely in tele. MD Sergio
[2023-02-17] MEDS ORDERED: POLYETHYLENE (MIRALAX) 17 GM PACK PO PRN (20:24)
[2023-02-17] MEDS: HEPARIN SOD 5,000 UNIT/0.5 ML VIAL SQ SCH (20:58)
[2023-02-17] MEDS: NYSTATIN POWDER 15GM BTL EXT SCH (20:58)
[2023-02-17] MEDS: METOPROLOL TARTRATE 50 MG TAB PO SCH (20:58)
[2023-02-18] MEDS ORDERED: LEVOTHYROXINE SODIUM 88 MCG TABLET PO SCH (06:30)
[2023-02-18 07:16] LABS: Hematocrit (blood only) 36.5 % (37.0-47.0); Hemoglobin 11.8 g/dl (12.0-16.0); Mean Corpuscular Hgb Conc 32.3 g/dL (32.0-36.0); Mean Corpuscular Volume 86.7 fL (80.0-100.0); Platelet Count 225 K/uL (130-400); RDW Coefficient of Variation 14.4 % (11.5-14.5); RDW Standard Deviation 45.9 fL (36.4-46.3); Red Blood Count 4.21 M/uL (4.20-5.40); White Blood Count 5.36 K/ul (4.8-10.8)
[2023-02-18 07:30] LABS: BUN Creatinine Ratio 24.4 (10-20); Calcium 8.9 mg/dl (8.6-10.3); Creatinine Clr Calc Pharmacy 58.7 ml/min; Est GFR (African American) 73.9 ml/min; Est GFR (Non-African American) 63.8 ml/min; Potassium 3.9 mmol/L (3.5-5.1)
[2023-02-18] MEDS: METOPROLOL TARTRATE 50 MG TAB PO SCH (08:16)
[2023-02-18] MEDS: HEPARIN SOD 5,000 UNIT/0.5 ML VIAL SQ SCH (08:18)
[2023-02-18] MEDS: NYSTATIN POWDER 15GM BTL EXT SCH ×2 (08:18→14:10)
--- NOTE | 2023-02-18 08:36 | Electrocardiogram Report ---
Test Reason : Blood Pressure : / mmHG Vent. Rate : 062 BPM Atrial Rate : 062 BPM P-R Int : 204 ms QRS Dur : 138 ms QT Int : 450 ms P-R-T Axes : 082 001 018 degrees QTc Int : 456 ms Normal sinus rhythm Right bundle branch block Abnormal ECG When compared with ECG of 17-FEB-2023 15:21, No significant change was found Confirmed by Navarro Tate ([id number]) on 02/18/2023 8:35:31 AM Referred By: REFERRED SELF Confirmed By:Navarro Tate
[2023-02-18 08:40] LABS: Thyroid Stimulating Hormone 0.195 uIu/ml (0.300-4.500)
[2023-02-18] MEDS ORDERED: ESCITALOPRAM OXALATE 10 MG TAB PO SCH (09:00)
[2023-02-18] MEDS ORDERED: buPROPion XL 150 MG TABCR PO SCH (09:00)
[2023-02-18] MEDS ORDERED: PANTOprazole 40 MG TAB PO SCH (09:00)
[2023-02-18] MEDS ORDERED: hydroCHLOROthiazide 25 MG TAB PO SCH (09:00)
[2023-02-18] MEDS ORDERED: ROSUVASTATIN CALCIUM 10 MG TAB PO SCH (09:00)
[2023-02-18 09:14] LABS: T4 Free Thyroxine 1.35 ng/dl (0.61-1.60)
--- NOTE | 2023-02-18 10:42 | Cardiology Consultation ---
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 Presents now in the setting of marked emotional stress increasing anxiety with sense of heart pounding and palpitations in a pattern consistent with sensed ventricular ectopy. Patient wore brief event monitor with results pending no arrhythmias on telemetry Echocardiogram with preserved LV systolic function No evidence of myocardial ischemia Impression: Sense of palpitations likely ventricular ectopic beats. No high risk features. No tachyarrhythmias. Recommendations: Continue metoprolol tartrate at 50 mg twice per day, rosuvastatin 10 mg p.o. daily. Would reduce levothyroxine to 75 mcg/day. Add potassium chloride 10 mill equivalents daily. No additional plans for cardiac evaluation or treatment. Patient planning on relocating to [facility] with daughter daughter has chef passenger vessel in place History of Present Illness Reason for Consultation: Palpitations Requesting Physician: Dr. Goldman Attending Physician: Vinny Goldman MD History of Present Illness Patient is an 82-year-old female who is cardiac history is notable for 1. 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 Transient atrial fibrillation 2003 without recurrence 3. Hyperlipidemia 4. Anxiety/depressive disorder 5. Chronic right bundle branch block Patient presents this admission noting recent difficulties with increasing emotional stressors, anxiety and depression in association with of a friend, planned move out of state to live with her daughter. Has been experiencing symptoms of intermittent heart pounding without racing. No associated dizziness lightheadedness syncope or near syncope. No signs of fluid retention or edema. No neurologic complaints other than stress anxiety, tearfulness. No bleeding difficulties Appetite reduced with stress no acute weight changes. No fevers chills or unexplained infections No chest pains or exertional complaints. No orthopnea or worsening edema Allergies Allergy/AdvReac Type Severity Reaction Status Date / Time hydrocodone Allergy Intermediate GI UPSET Verified 02/17/23 17:13 acetaminophen Allergy Unknown GI SYMPTOMS Verified 02/17/23 17:13 codeine Allergy Unknown TYLENOL Verified 02/17/23 17:13 WITH CODEINE morphine Allergy Unknown UNKNOWN Verified 02/17/23 17:13 propoxyphene Allergy Unknown GI SYMPTOMS Verified 02/17/23 17:13 tramadol Allergy Unknown Unknown Verified 02/17/23 17:13 Home Medications Medication Instructions Recorded Confirmed Type bupropion HCl 150 mg 24 hr tablet, 150 mg PO QAM 02/17/23 02/17/23 History extended release escitalopram oxalate 10 mg tablet 10 mg PO QAM 02/17/23 02/17/23 History hydrochlorothiazide 12.5 mg capsule 12.5 mg PO QAM 02/17/23 02/17/23 History levothyroxine 88 mcg tablet 88 mcg PO DAILYBB 02/17/23 02/17/23 History metoprolol tartrate 50 mg tablet 50 mg PO BID 02/17/23 02/17/23 History nystatin 100,000 unit/gram topical 1 applic topical TID 02/17/23 02/17/23 History powder omeprazole 20 mg tablet,delayed 20 mg PO DAILY 02/17/23 02/17/23 History release rosuvastatin 10 mg tablet 10 mg PO DAILY 02/17/23 02/17/23 History Patient History Medical History Depression GERD (gastroesophageal reflux disease) History of supraventricular tachycardia HLD (hyperlipidemia) Hypertension Surgical History History of arthroplasty of knee History of cardiac radiofrequency ablation History of cholecystectomy Hx of tonsillectomy Family History Other Breast cancer Heart disease Social History Smoking Status: Never smoker Second Hand Exposure: No; Do You Dip or Chew Tobacco: No; Tobacco Cessation Education Requested by Patient: No Hx Alcohol Use: No Hx Substance Use: No Preferred Language: Macedonian Communication Ability: Effective Airdox Fitter Required: No Beliefs That Will Affect Care: None Current Living Situation: Alone Other Information That Helps Us Care for You: No Feels Safe at Home: Yes Safety Concerns: Feels Safe At This Time Assistive Devices: Walker Review of Systems Review of Systems: All systems reviewed & are unremarkable except as noted in HPI & below Physical Exam Constitutional: WD/WN, vitals as above Eyes: PERRL, conjunctivae normal, anicteric sclerae ENMT: external ear and nose normal, oropharynx normal Neck: trachea midline, no thyromegaly Respiratory: normal respiratory effort, lungs clear to auscultation Cardiovascular: RRR, no murmur, no edema Heart Sounds: no murmur Vessels: no JVD Extremities: no edema Gastrointestinal (Abdomen): normal bowel sounds, soft, nontender, no hepatosplenomegaly Musculoskeletal: no cyanosis or clubbing, extremities motor strength 5/5 Results & Data Vital Signs (Past 12 Hours) Vital Signs Temp Pulse Pulse Resp BP Pulse Ox O2 Del Method 02/18/23 07:40 36.4 C L 63 16 127/83 95 Room Air 02/18/23 04:00 36.7 C 60 16 125/68 96 Room Air 02/17/23 22:40 58 L Laboratory Results Laboratory Results - last 24 hr 02/17/23 02/17/23 02/17/23 15:22 15:22 15:22 WBC 7.33 RBC 4.65 Hgb 13.1 Hct 39.2 MCV 84.3 MCH 28.2 MCHC 33.4 RDW Std Deviation 44.5 RDW Coeff of Blanca 14.5 Plt Count 275 MPV 11.0 Immature Gran % (Auto) 0.3 Neut % (Auto) 71.8 Lymph % (Auto) 19.6 Catron % (Auto) 5.0 Eos % (Auto) 2.5 Baso % (Auto) 0.8 Neut # (Auto) 5.26 Lymph # (Auto) 1.44 Catron # (Auto) 0.37 Eos # (Auto) 0.18 Baso # (Auto) 0.06 Immature Gran # (Auto) 0.02 PT 11.3 INR 1.0 APTT 26.1 PTT Ratio 0.9 Sodium 141 Potassium 3.5 Chloride 107 Carbon Dioxide 27 Anion Gap 7 BUN 20 Creatinine 0.87 Est Cr Clr Drug Dosing 57.9 Est GFR ( Amer) 72.9 Est GFR (Non-Af Amer) 62.9 BUN/Creatinine Ratio 23.0 H Glucose 102 H Calcium 9.3 Magnesium Total Bilirubin 0.4 AST 14 ALT 10 Alkaline Phosphatase 75 Troponin I High Sens 5.4 Total Protein 6.8 Albumin 3.7 Globulin 3.1 Albumin/Globulin Ratio 1.2 TSH Free T4 SARS-CoV-2, RNA, NAAT 02/17/23 02/17/23 02/18/23 18:12 21:17 06:37 WBC 5.36 RBC 4.21 Hgb 11.8 L Hct 36.5 L MCV 86.7 MCH 28.0 MCHC 32.3 RDW Std Deviation 45.9 RDW Coeff of Blanca 14.4 Plt Count 225 MPV 11.0 Immature Gran % (Auto) Neut % (Auto) Lymph % (Auto) Catron % (Auto) Eos % (Auto) Baso % (Auto) Neut # (Auto) Lymph # (Auto) Catron # (Auto) Eos # (Auto) Baso # (Auto) Immature Gran # (Auto) PT INR APTT PTT Ratio Sodium Potassium Chloride Carbon Dioxide Anion Gap BUN Creatinine Est Cr Clr Drug Dosing Est GFR ( Amer) Est GFR (Non-Af Amer) BUN/Creatinine Ratio Glucose Calcium Magnesium Total Bilirubin AST ALT Alkaline Phosphatase Troponin I High Sens 7.5 Total Protein Albumin Globulin Albumin/Globulin Ratio TSH Free T4 SARS-CoV-2, RNA, NAAT NEGATIVE 02/18/23 02/18/23 02/18/23 06:37 06:37 06:37 WBC RBC Hgb Hct MCV MCH MCHC RDW Std Deviation RDW Coeff of Blanca Plt Count MPV Immature Gran % (Auto) Neut % (Auto) Lymph % (Auto) Catron % (Auto) Eos % (Auto) Baso % (Auto) Neut # (Auto) Lymph # (Auto) Catron # (Auto) Eos # (Auto) Baso # (Auto) Immature Gran # (Auto) PT INR APTT PTT Ratio Sodium 143 Potassium 3.9 Chloride 108 H Carbon Dioxide 30 Anion Gap 5 BUN 21 Creatinine 0.86 Est Cr Clr Drug Dosing 58.7 Est GFR ( Amer) 73.9 Est GFR (Non-Af Amer) 63.8 BUN/Creatinine Ratio 24.4 H Glucose 101 H Calcium 8.9 Magnesium 2.0 Total Bilirubin AST ALT Alkaline Phosphatase Troponin I High Sens Total Protein Albumin Globulin Albumin/Globulin Ratio TSH 0.195 L Cancelled Free T4 1.35 SARS-CoV-2, RNA, NAAT Diagnostic Findings EKG 02/18/2023 Normal sinus rhythm at 62 bpm with right bundle branch block configuration unchanged from prior studies Echocardiogram 02/18/2023 Normal left-ventricular size and function EF 65-70% with mild left hypertrophy, mild to moderate mitral insufficiency, borderline left atrial enlargement
[2023-02-18] MEDS ORDERED: hydrOXYzine HCl 10 MG TAB PO PRN (13:20)
--- NOTE | 2023-02-18 13:35 | Discharge Summary ---
Date of Service February 18, 2023 Admission HPI Per Admitting Provider Patient is 82-year-old female with PMH of SVT s/p ablation, HTN, HLD, depression, GERD, hypothyroidism presented to ER with complaint of palpitations. Patient reports past several weeks has been having intermittent palpitations. She feels that palpitations have become more frequent and are now occurring on a daily basis. Palpitations will sometimes last 20 minutes or longer. Sometimes she can get palpitations to resolve with Valsalva maneuver. Denies any associated chest pain, shortness of breath, diaphoresis, dizziness, syncope. Patient states today palpitations seem to be ongoing so she took an additional 25 mg metoprolol tartrate this afternoon. Reports followed up with PCP and had outpatient manager monitoring however reports she just turned in and no results yet. Patient reports is under a great deal of stress. A good friend that she was taking care of almost 6 months ago. Patient states she has been having a hard time dealing with this. She is planning to move to [place] to live with her daughter. Patient reports feels ashamed that she has to live with her daughter and is feeling quite anxious about this. Denies fever/chills, diaphoresis, N/V/D/C, VANEGAS, vision changes, neck pain, cough, sore throat, rhinorrhea, abdominal pain, paresthesias, extremity weakness, extremity edema, rashes, urinary symptoms. Admission Exam Per Admitting Provider General: +anxious, otherwise no acute distress, obese elderly female Head: normocephalic, atraumatic Eyes: conjunctiva non-injected, anicteric ENT: normal inspection external ears, nose, mucous membranes moist Neck: supple, trachea midline Lungs: clear, no respiratory distress, no wheezing/rhonchi/rales CV: RRR, no murmur, no pretibial edema Abd: protuberant, normal BS, soft, non-tender Ext: no cyanosis, no calf tenderness Neuro: A&O x 3, no focal deficits noted, +tearful, anxious Skin: warm, dry Principal Diagnosis Palpitation Discharge Exam GENERAL: Alert and oriented x3. NAD, on RA. HEENT: No pallor, no icterus. Pupils equal, round and reactive to light. Oral mucosa moist. NECK: No JVD, no neck masses. HEART: S1 and S2 heard. Regular rate and rhythm. No murmur, no gallop. RESPIRATORY SYSTEM: Normal AP diameter. No accessory muscle use. No wheezing, no crackles. ABDOMEN: Soft, bowel sounds present, nontender, no distention. CENTRAL NERVOUS SYSTEM: No facial droop. Speech is clear. Obeys simple commands. Moves extremities. EXTREMITIES: No edema, no erythema seen. Discharge Data Allergies Allergy/AdvReac Type Severity Reaction Status Date / Time hydrocodone Allergy Intermediate GI UPSET Verified 02/17/23 17:13 acetaminophen Allergy Unknown GI SYMPTOMS Verified 02/17/23 17:13 codeine Allergy Unknown TYLENOL Verified 02/17/23 17:13 WITH CODEINE morphine Allergy Unknown UNKNOWN Verified 02/17/23 17:13 propoxyphene Allergy Unknown GI SYMPTOMS Verified 02/17/23 17:13 tramadol Allergy Unknown Unknown Verified 02/17/23 17:13 Consultations 02/17/23 18:25 ED Decision to Admit Stat 02/18/23 08:00 Consult Cardiology Routine Hospital Course (1) Palpitations: Patient is 82-year-old female with PMH of SVT s/p ablation, HTN, HLD, depression, GERD, hypothyroidism presented to ER with complaint of palpitations x several weeks. In ER in sinus rhythm, initially bradycardic in the 50s which improved to the 60s. EKG sinus rhythm, T wave inversion anterior leads, RBBB. CXR: No acute disease. Was managed for the following: Palpitation: TSH low, levothyroxine dose reduced to 75 mcg from 88 mcg. Troponin trends negative. Cardiology evaluated. Appreciate recommendation. Echo reviewed. Patient reports feeling better, will need repeat thyroid function test in 6 weeks, patient is aware. Patient to follow-up with her cardiology as prior. (2) Hypertension: BP elevated in ER. Likely secondary to acute distress at presentation. Better controlled today. Continue home HCTZ and metoprolol. (3) HLD (hyperlipidemia): Continue rosuvastatin (4) Depression: Following with PCP for increased depression and anxiety recently Continue escitalopram, bupropion. Hydroxyzine as needed has been added for anxiety. (5) GERD (gastroesophageal reflux disease): Continue PPI (6) Hypothyroidism: Levothyroxine dose has been reduced to 75 mcg, repeat thyroid function test in 6 weeks. DVT Prophylaxis: Heparin subcu DNR/DNI as per discussion with pt Patient being discharged to home with following instruction at the point of discharge: Plan Follow-up with your primary care physician within a week time and likely will need labs CBC/CMP/magnesium/phosphorus. Cardiology evaluated you while inpatient, continue with your metoprolol and rosuvastatin as prior. Potassium tablet has been added. Follow-up with your cardiology as prior. Your levothyroxine dose has been reduced to 75 mcg from 88 mcg. You will need repeat thyroid function test in 6 weeks upon discharge. For your anxiety, you are discharged on hydroxyzine as needed up to 3 times a day. Take your medications as prescribed. Home Health Attestation I certify that this patient is under my care and that I, or a physicians assistant business manager working with me, had a face to-face encounter that meets the home health [id number] encounter requirements with this patient. The encounter with the patient was in whole, or in part, for the following medical condition, which is the primary reason for home health care (list medical condition): I certify that, based on my findings, the following services are medically necessary home health services: My clinical findings support the need for the above services because: Further, I certify that my clinical findings support that this patient is homebound (i.e. absences from home require considerable and taxing effort and are for medical reasons or jehovah's witness services or infrequently or of short duration when for other reasons) because: Certification for Home Health Services: Based on the above findings, I certify that this patient is confined to the home and needs intermittent assisted care, physical therapy and/or speech therapy or continues to need occupational therapy. The patient is under my care, and I have initiated the establishment of the plan of care. This patient will be followed by a physician who will periodically review the plan of care. Total Time Total Time Spent Total Time Spent (In Minutes): 45 Discharge Plan Discharge Items Patient Disposition: Home - Self-Care Reason For Visit: PALPITATIONS Discharge Diagnosis: Palpitation Activity: Resume your previous activity Non-emergency contact: Primary Care Provider Call non-emergency contact if: you have any medication questions, your symptoms worsen and your temperature is above 101 Follow-up/Referrals: Kurtis Munguia DO [Primary Care Provider] - Diet: Heart Healthy Addtl Attending Provider Instructions: Follow-up with your primary care physician within a week time and likely will need labs CBC/CMP/magnesium/phosphorus. Cardiology evaluated you while inpatient, continue with your metoprolol and rosuvastatin as prior. Potassium tablet has been added. Follow-up with your cardiology as prior. Your levothyroxine dose has been reduced to 75 mcg from 88 mcg. You will need repeat thyroid function test in 6 weeks upon discharge. For your anxiety, you are discharged on hydroxyzine as needed up to 3 times a day. Take your medications as prescribed. Pending Studies at Discharge: No Stand-Alone Forms: My [facility], Smoking Cessation Medications and DC Order Prescriptions: New hydroxyzine HCl 10 mg Tablet 10 mg PO TID PRN (Reason: anxiety) Qty: 60 0RF potassium chloride 10 mEq Tablet,Er Particles/Crystals 10 meq PO DAILY Qty: 30 0RF levothyroxine [Synthroid] 75 mcg Tablet 75 mcg PO DAILYBB Qty: 30 0RF Continued escitalopram oxalate 10 mg tablet 10 mg PO QAM bupropion HCl 150 mg tablet extended release 24 hr 150 mg PO QAM metoprolol tartrate 50 mg tablet 50 mg PO BID nystatin 100,000 unit/gram powder 1 applic TOPICAL TID Rx Instructions: apply to inguinal area hydrochlorothiazide 12.5 mg capsule 12.5 mg PO QAM rosuvastatin 10 mg tablet 10 mg PO DAILY omeprazole 20 mg Tablet,Delayed Release (Dr/Ec) 20 mg PO DAILY Discontinued levothyroxine 88 mcg tablet 88 mcg PO DAILYBB Discharge Orders: Discharge Order (Routine); Ordered 02/18/23 Ordered By: Vinny Goldman Admission Data Admit Date/Time: 02/17/23 18:56 Attending Provider: Vinny Goldman Admit Provider: Caprice Hill Primary Care Provider: Kurtis Munguia Other Providers: Caprice Hill ; Javed Mann
[2023-02-19] MEDS ORDERED: LEVOTHYROXINE SODIUM 75 MCG TABLET PO SCH (06:30)
[2023-02-19] MEDS ORDERED: POTASSIUM CHLORIDE 10 MEQ TABCR PO SCH (09:00)
== END 2023-02-18 14:19 | disposition home or self-care (01) ==
LOC: 2S 14:37 → ED 14:37 → SUATTDRO 18:56 → 2S 20:34